=== PATIENT | male | born 1945 | race Caucasian/White ===

== ENCOUNTER 2018-01-27 14:18 | Outpatient (RCR) | payer SELFPAY | END 2018-03-06 15:38 | disposition home or self-care (01) | LOC: MKS.ESL.PT 14:18 | DX: G62.9 Polyneuropathy, unspecified (principal) ==

== ENCOUNTER 2018-03-06 09:30 | Outpatient (RCR) | payer MEDICARE, BC | END 2018-03-06 15:38 | disposition home or self-care (01) | LOC: MKS.ESL.PT 09:30 | DX: G62.9 Polyneuropathy, unspecified (principal) | CPT/HCPCS: G8990-GP; G8991-GP; G8992-GP ==

== ENCOUNTER → 2018-03-31 | Outpatient (REF) ==
[2018-03-31 16:44] LABS: PSA-TOTAL 1.39 ng/mL (0-4)
[2018-03-31 17:14] LABS: THYROID STIMULATING HORMONE 1.1 uIU/mL (0.465-4.680)
== END ==
LOC: ZLAB.WCH 15:52
PROVIDERS: Internal Medicine
DX: Z01.89 Encounter for other specified special examinations (principal)
CPT/HCPCS: G0103

== ENCOUNTER → 2018-07-15 | Outpatient (CLI) | payer MEDICARE, BC | LOC: COL.VAS 07:28 | DX: N18.4 Chronic kidney disease, stage 4 (severe) (principal) | CPT/HCPCS: G0365 ==

== ENCOUNTER → 2018-09-01 | Outpatient (REF) | LOC: ZLAB.WCH 16:49 | DX: Z01.89 Encounter for other specified special examinations (principal) ==